=== PATIENT | female | born 1990 | race African-American/Black ===

== ENCOUNTER 2021-07-13 09:05 | Inpatient (IN) | payer SELFPAY ==
[2021-07-13 09:11] VITALS: BP 127/68; PULSE 100; RESP 15; TEMP 36.7; O2SAT 98; BMI 25.7
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
[2021-07-13 10:33] LABS: Amphetamines Screen Urine Negative (Negative); Barbiturates Screen Urine Negative (Negative); Benzodiazepines Screen Urine Negative (Negative); Cocaine Screen Urine Negative (Negative); Opiate Screen Urine Negative (Negative); PCP Screen Urine Negative (Negative); THC Screen Urine Negative (Negative)
[2021-07-13 11:30] LABS: Basophils # 0.1 10^3/uL (0.0-0.1); Eosinophils # 0.2 10^3/uL (0.0-0.8); Eosinophils % 3.1 %; Hematocrit 35.2 % (37.0-47.0); Hemoglobin 11.8 g/dL (11.5-15.3); Lymphocytes # 1.5 10^3/uL (0.8-4.8); Lymphocytes % 26.5 %; Mean Corpuscular HGB Conc 33.5 g/dL (30.0-36.0); Mean Corpuscular Hemoglobin 26.1 pg (28.0-34.0); Mean Corpuscular Volume 77.9 fl (81-99); Mean Platelet Volume 11.2 fL (7.4-10.4); Monocytes # 0.6 10^3/uL (0.2-0.9); Monocytes % 10.5 %; Neutrophils # 3.36 10^3/uL (1.8-7.7); Neutrophils % 58.6 %; Nucleated Red Blood Cells % 0 %; Platelet Count 294 10^3/cmm (130-400); Red Blood Count 4.52 10^6/uL (4.1-5.3); Red Cell Distribution Width 16.8 % (12.1-15.1); White Blood Count 5.7 10^3/uL (4.0-10.0)
[2021-07-13 11:54] LABS: HCG, Serum Qual Negative (Negative)
[2021-07-13 12:00] LABS: Albumin Level 3.9 g/dL (3.5-5.2); Chloride 102 mmol/L (98-107); Potassium 3.9 mmol/L (3.5-5.1); Sodium 135 mmol/L (136-145)
[2021-07-13 12:02] LABS: Acetaminophen < 5.0 ug/mL (10-30)
[2021-07-13 12:03] LABS: Alanine Aminotransferase 23 U/L (0-33); Alkaline Phosphatase 115 IU/L (35-105); Anion Gap 12.9 (5-19); Aspartate Amino Transferase 16 U/L (0-32); Blood Urea Nitrogen 12 mg/dL (6-20); Calcium 8.4 mg/dL (8.5-10.5); Carbon Dioxide 24 mmol/L (22-29); Globulin 3.3 g/dL (1.3-4.6); Glomerular Filtration Rate 141.1 mL/min (90-130); Glucose 94 mg/dL (65-115); Osmolality Calculated 280 mOsm/kg (285-295); Total Bilirubin 0.3 mg/dL (0.15-1.2); Total Protein 7.1 g/dL (6.6-8.7)
--- NOTE | 2021-07-13 12:18 | PC.NURSE ---
Report to GABRIEL Chowdary.
[2021-07-13 12:20] LABS: Salicylate < 0.3 mg/dL (3-10)
[2021-07-13 12:21] LABS: Alcohol Level < 10 mg/dL (0-10)
[2021-07-13 14:00] VITALS: BP 137/82; PULSE 95; RESP 18; TEMP 36.7; O2SAT 97
[2021-07-13] MEDS: haloperidol 5 mg Tablet PO (16:06)
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
[2021-07-13] MEDS: quetiapine 25 mg Tablet 50 MG PO (20:54)
[2021-07-13] MEDS: zolpidem 5 mg Tablet PO (20:54)
[2021-07-13 21:34] VITALS: RESP 15
[2021-07-14 06:00] VITALS: BP 92/60; PULSE 101; RESP 17; TEMP 36.6; O2SAT 96
[2021-07-14] MEDS: fluoxetine 20 mg Capsule PO (08:39)
[2021-07-14] MEDS: OLANZapine 5 mg ODT PO (08:39)
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
--- NOTE | 2021-07-14 12:21 | NPU.GN ---
[facility] Unit Group Topic:Marivel General Mood of Group: Miguel A did attend group and participated with others. Miguel A did talk with others and this physician underwriter. Miguel A did express to this physician underwriter that she wants to quit using drugs and be clean and start a family that the doctor told her that she could never have. This physician underwriter provided active listening and feedback that it is great to have those goals and encouraged the patient to achieve them.
[2021-07-14 13:24] VITALS: BP 109/69; PULSE 98; RESP 16; TEMP 36.6; O2SAT 98
[2021-07-14] MEDS: ARIPiprazole 10 mg Tablet 5 MG PO (14:04)
[2021-07-14] MEDS: nicotine 2 mg Gum BUCCAL ×2 (14:57→16:52)
[2021-07-14] MEDS: acetaminophen 325 mg Tablet 650 MG PO (17:01)
[2021-07-14] MEDS: hyDROXYzine 25 mg Capsule 50 MG PO (17:04)
[2021-07-14] MEDS: zolpidem 5 mg Tablet PO (20:04)
[2021-07-14] MEDS: quetiapine 25 mg Tablet 50 MG PO (20:04)
[2021-07-14 20:05] VITALS: BP 111/66; PULSE 120; RESP 16; O2SAT 98
[2021-07-15 06:00] VITALS: BP 103/69; PULSE 90; RESP 16; O2SAT 98
[2021-07-15] MEDS: nicotine 2 mg Gum BUCCAL ×2 (07:54→17:34)
[2021-07-15] MEDS: ARIPiprazole 10 mg Tablet 5 MG PO (09:29)
[2021-07-15] MEDS: fluoxetine 20 mg Capsule PO (09:29)
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
[2021-07-15 14:00] VITALS: BP 116/78; PULSE 108; RESP 17; TEMP 36.6; O2SAT 99
[2021-07-15 20:20] VITALS: BP 119/0; PULSE 94; RESP 15; TEMP 37.2; O2SAT 100
[2021-07-15] MEDS: zolpidem 5 mg Tablet PO (20:30)
[2021-07-15] MEDS: quetiapine 25 mg Tablet 50 MG PO (20:30)
[2021-07-16 06:00] VITALS: BP 121/76; PULSE 62; RESP 17; TEMP 36.6; O2SAT 98; BMI 25.7
[2021-07-16] MEDS: fluoxetine 20 mg Capsule PO (11:04)
[2021-07-16] MEDS: ARIPiprazole 10 mg Tablet 5 MG PO (11:04)
[2021-07-16] MEDS: nicotine 2 mg Gum BUCCAL ×2 (11:22→17:13)
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
[2021-07-16 14:00] VITALS: BP 110/74; PULSE 103; RESP 17; TEMP 36.3; O2SAT 95
[2021-07-16] MEDS: hyDROXYzine 25 mg Capsule 50 MG PO (17:57)
[2021-07-16 20:10] VITALS: BP 102/70; PULSE 88; RESP 17; TEMP 37.1; O2SAT 99
[2021-07-16] MEDS: zolpidem 5 mg Tablet PO (20:28)
[2021-07-16] MEDS: quetiapine 25 mg Tablet 50 MG PO (20:28)
[2021-07-17 06:00] VITALS: BP 96/60; PULSE 62; RESP 16; TEMP 36.7; O2SAT 98
[2021-07-17] MEDS: ARIPiprazole 10 mg Tablet 5 MG PO (08:42)
[2021-07-17] MEDS: fluoxetine 20 mg Capsule PO (08:43)
[2021-07-17] MEDS: hyDROXYzine 25 mg Capsule 50 MG PO (09:38)
--- NOTE | 2021-07-17 09:40 | PC.NURSE ---
patient reports increased anxiety due to auditory hallucinations, no command, non si or hi. medicated with prn vistaril.
--- NOTE | 2021-07-17 11:04 | NPU.GN ---
[facility] Group Topic:Triggers and Coping Skills General Mood of Group: Miguel A did attend and participate in group today. She socialized with this telegraphic typewriter operator chief and others in group. Miguel A shared her triggers and what coping mechanisms she uses when needed, and what triggers she has identified and how to avoid her triggers. Santiago was in a good mood and seems mentally and emotionally stable.
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
[2021-07-17 13:37] VITALS: BP 96/60; PULSE 62; RESP 16; TEMP 36.7; O2SAT 98
== END 2021-07-17 15:11 | disposition home or self-care (01) | DRG 885 ==
LOC: ER 11:00 → NP 11:47
PROVIDERS: Physician Assistant; Admitting Provider Psychiatry & Neurology Child & Adolescent Psychiatry; Emergency Provider Family Medicine; Visit Provider Psychiatry & Neurology Child & Adolescent Psychiatry
DX: F20.9 Schizophrenia, unspecified (principal); F43.10 Post-traumatic stress disorder, unspecified; R45.850 Homicidal ideations; F15.90 Other stimulant use, unspecified, uncomplicated; Z81.8 Family history of other mental and behavioral disorders
CPT/HCPCS: 36415; 80053; 80306; 80307; 84703; 85025; 97150; 97165; 99285

== ENCOUNTER 2023-06-05 08:16 | Emergency (ER) | payer BC, MEDICAID, SELFPAY ==
[2023-06-05 08:23] VITALS: BP 118/82; PULSE 103; RESP 18; TEMP 36.9; O2SAT 98
--- NOTE | 2023-06-05 08:42 | ED.C_ITS ---
HPI - Psych General: Chief Complaint: Psychiatric Symptoms Stated Complaint: SI Time Seen by Provider: 06/05/23 08:17 Source: patient and EMS Mode of arrival: EMS Limitations: no limitations History of Present Illness: 32 yo female that has a hx of schizophrenia along with meth abuse. She states that she has been at [facility] for a week for her meth rehab. She states she has had some auditory hallucinations. She denies any suicidal or homicidal ideations. pt sent here from [facility] for eval for her hallucinations Associated symptoms: Reports auditory hallucinations; Deny depression Review of Systems Const: Denies: fever(s), chills, body aches or change in appetite Eyes: Denies: blurry vision or eye discomfort ENMT: Denies: throat pain or dental pain Card: Denies: chest pain Resp: Denies: dyspnea GI: Denies: abdominal pain, nausea, vomiting or diarrhea : Denies: dysuria Musc: Denies: neck pain or back pain Skin/Breast: Denies: rash Neuro: Denies: headache(s) Psych: Reports: auditory hallucinations; Denies: depression Physical Exam Const: COMMON NORMALS: no acute distress, patient oriented x3 and healthy appearing HENMT: COMMON NORMALS: normocephalic and atraumatic HEAD & SCALP: n ormocephalic and atraumatic Eye: COMMON NORMALS: Equal, round and reactive pupils present and EOMs intact bilaterally PUPIL: Yes Equal, round and reactive pupils present Neck/C-Spine: COMMON NORMALS: full ROM and supple Chest: COMMONS NORMALS: normal inspection of the chest Resp: COMMON NORMALS: normal respiratory effort Cardio: COMMON NORMALS: regular rate, regular rhythm and No murmurs present (Cardio) RATE: regular rate RHYTHM: regular rhythm GI: COMMON NORMALS: Normal to inspection, nondistended, normoactive bowel sounds present, Soft to palpation, non-tender and no masses PALPATION: Yes Soft to palpation Extremity: COMMON NORMALS: normal to inspection and full ROM Neuro: COMMON NORMALS: patient oriented x3, moves all extremities and no focal motor deficits Psych: COMMON NORMALS: mental status grossly normal, Normal thought process present and cooperative THOUGHT PROCESS: Normal thought process present THOUGHT CONTENT: Yes Hallucination(s) present Skin: COMMON NORMALS: no rashes or lesions noted and no wounds GENERAL SKIN EXAM: no rashes or lesions noted Course Vital Signs: Vital signs: Vital Signs Temperature 98.5 F 06/05/23 08:23 Pulse Rate 103 H 06/05/23 08:23 Respiratory Rate 18 06/05/23 08:23 Blood Pressure 118/82 06/05/23 08:23 Pulse Oximetry 98 06/05/23 08:23 MDM - Psych Medical Decision Making pt presents here with hallucinations. Pt was seen here by Dr. baum and plan is to give invega and prescribe invega for home. will discharge back to [facility] at this time. pt is to return if worsening. Lab Data 06/05/23 08:37 06/05/23 08:37 Laboratory Results WBC 7.35 10^3/uL (3.29-11.43) 06/05/23 08:37 RBC 4.46 10^6/uL (3.85-5.65) 06/05/23 08:37 Hgb 11.60 g/dL (11.27-16.99) 06/05/23 08:37 Hct 35.3 % (36-47) L 06/05/23 08:37 MCV 79.1 fl (85-98) L 06/05/23 08:37 MCH 26.0 pg (27-33) L 06/05/23 08:37 MCHC 32.9 g/dL (30-55) 06/05/23 08:37 RDW 16.5 % (12.1-15.1) H 06/05/23 08:37 Plt Count 260 10^3/cmm (157-399) 06/05/23 08:37 MPV 11.3 fL (7.4-10.4) H 06/05/23 08:37 Neut % (Auto) 66.4 % 06/05/23 08:37 Lymph % (Auto) 18.8 % 06/05/23 08:37 Bulloch % (Auto) 10.6 % 06/05/23 08:37 Eos % (Auto) 1.9 % 06/05/23 08:37 Baso % (Auto) 1.1 % 06/05/23 08:37 Neut # (Auto) 4.88 10^3/uL (1.8-7.7) 06/05/23 08:37 Lymph # (Auto) 1.4 10^3/uL (0.8-4.8) 06/05/23 08:37 Bulloch # (Auto) 0.8 10^3/uL (0.2-0.9) 06/05/23 08:37 Eos # (Auto) 0.1 10^3/uL (0.0-0.8) 06/05/23 08:37 Baso # (Auto) 0.1 10^3/uL (0.0-0.1) 06/05/23 08:37 Nucleated RBC % (auto) 0 % 06/05/23 08:37 Nucleated RBCs # 0.0 /100WBC 06/05/23 08:37 Sodium 139 mmol/L (136-145) 06/05/23 08:37 Potassium 4.2 mmol/L (3.5-5.1) 06/05/23 08:37 Chloride 105 mmol/L (98-107) 06/05/23 08:37 Carbon Dioxide 24 mmol/L (22-29) 06/05/23 08:37 Anion Gap 14.2 (5-19) 06/05/23 08:37 BUN 13 mg/dL (6-20) 06/05/23 08:37 Creatinine 0.8 mg/dL (0.5-0.9) 06/05/23 08:37 GFR Calculation 100.0 mL/min (90-130) 06/05/23 08:37 Glucose 131 mg/dL (65-115) H 06/05/23 08:37 Calculated Osmolality 290 mOsm/kg (285-295) 06/05/23 08:37 Calcium 8.8 mg/dL (8.5-10.5) 06/05/23 08:37 Total Bilirubin 0.3 mg/dL (0.15-1.2) 06/05/23 08:37 AST 23 U/L (0-32) 06/05/23 08:37 ALT 41 U/L (0-33) H 06/05/23 08:37 Alkaline Phosphatase 113 U/L (35-105) H 06/05/23 08:37 Total Protein 7.1 g/dL (6.6-8.7) 06/05/23 08:37 Albumin 4.0 g/dL (3.5-5.2) 06/05/23 08:37 Globulin 3.1 g/dL (1.3-4.6) 06/05/23 08:37 HCG, Qual Negative (Negative) 06/05/23 08:40 Salicylates < 0.3 mg/dL (3-10) L 06/05/23 08:37 Urine Opiates Screen Negative ng/mL (Negative) 06/05/23 08:40 Acetaminophen < 5.0 ug/mL (10-30) L 06/05/23 08:37 Ur Barbiturates Screen Negative ng/mL (Negative) 06/05/23 08:40 Ur Phencyclidine Scrn Negative ng/mL (Negative) 06/05/23 08:40 Ur Amphetamines Screen Negative ng/mL (Negative) 06/05/23 08:40 U Benzodiazepines Scrn Negative ng/mL (Negative) 06/05/23 08:40 Urine Cocaine Screen Negative ng/mL (Negative) 06/05/23 08:40 U Marijuana (THC) Screen Negative ng/mL (Negative) 06/05/23 08:40 Ethyl Alcohol < 10 mg/dL (0-10) 06/05/23 08:37 No radiology studies performed this visit Discharge Plan Discharge Patient Disposition: Home Clinical Impression: Auditory hallucination Condition: Stable Prescriptions: New Invega 6 mg tablet extended release 24 hr 6 mg PO DAILY Qty: 30 0RF No Action hydroxyzine pamoate 25 mg Capsule 50 mg PO Q6H PRN (Reason: Anxiety) 30 Days Qty: 120 1RF clonidine HCl 0.1 mg Tablet 0.1 mg PO DAILY PRN (Reason: Blood Pressure) mirtazapine 30 mg Tablet 30 mg PO QPM ibuprofen 600 mg Tablet 600 mg PO TID PRN (Reason: Pain) olanzapine 20 mg Tablet 20 mg PO QPM prazosin 2 mg Capsule 2 mg PO QPM olanzapine 5 mg tablet,disintegrating 5 mg PO QID PRN (Reason: Anxiety) bupropion HCl 150 mg Tablet Extended Release 24 Hr 150 mg PO QAM Discharge Orders: Discharge ED (Routine); Ordered 06/05/23 Ordered By: Maday Montalvo Discharge Diet: Advance as tolerated Discharge Activity: Resume usual activity Patient Instructions: Hallucinations (ED) Coding Level of Care Code ED Cigar Tobacco Processing Supervisor for Patrick Alfonso
[2023-06-05 08:43] LABS: Basophils # 0.1 10^3/uL (0.0-0.1); Basophils % 1.1 %; Eosinophils # 0.1 10^3/uL (0.0-0.8); Eosinophils % 1.9 %; Hematocrit 35.3 % (36-47); Lymphocytes # 1.4 10^3/uL (0.8-4.8); Lymphocytes % 18.8 %; Mean Corpuscular HGB Conc 32.9 g/dL (30-55); Mean Corpuscular Volume 79.1 fl (85-98); Mean Platelet Volume 11.3 fL (7.4-10.4); Monocytes # 0.8 10^3/uL (0.2-0.9); Monocytes % 10.6 %; Neutrophils # 4.88 10^3/uL (1.8-7.7); Neutrophils % 66.4 %; Nucleated Red Blood Cells % 0 %; Platelet Count 260 10^3/cmm (157-399); Red Blood Count 4.46 10^6/uL (3.85-5.65); Red Cell Distribution Width 16.5 % (12.1-15.1); White Blood Count 7.35 10^3/uL (3.29-11.43)
[2023-06-05 09:02] LABS: HCG Qualitative Urine. Negative (Negative)
[2023-06-05 09:04] LABS: Alanine Aminotransferase 41 U/L (0-33); Alkaline Phosphatase 113 U/L (35-105); Anion Gap 14.2 (5-19); Aspartate Amino Transferase 23 U/L (0-32); Blood Urea Nitrogen 13 mg/dL (6-20); Calcium 8.8 mg/dL (8.5-10.5); Carbon Dioxide 24 mmol/L (22-29); Chloride 105 mmol/L (98-107); Globulin 3.1 g/dL (1.3-4.6); Glucose 131 mg/dL (65-115); Osmolality Calculated 290 mOsm/kg (285-295); Potassium 4.2 mmol/L (3.5-5.1); Sodium 139 mmol/L (136-145); Total Bilirubin 0.3 mg/dL (0.15-1.2); Total Protein 7.1 g/dL (6.6-8.7)
[2023-06-05 09:05] LABS: Acetaminophen < 5.0 ug/mL (10-30); Alcohol Level < 10 mg/dL (0-10); Salicylate < 0.3 mg/dL (3-10)
[2023-06-05 09:10] LABS: Amphetamines Screen Urine Negative (Negative); Barbiturates Screen Urine Negative (Negative); Benzodiazepines Screen Urine Negative (Negative); Cocaine Screen Urine Negative (Negative); Opiate Screen Urine Negative (Negative); PCP Screen Urine Negative (Negative); THC Screen Urine Negative (Negative)
[2023-06-05] MEDS: paliperidone ER 6 mg Tablet PO (11:43)
== END 2023-06-05 12:37 | disposition home or self-care (01) ==
PROVIDERS: Emergency Provider Emergency Medicine
DX: R44.0 Auditory hallucinations (principal)
CPT/HCPCS: 36415; 80053; 80306; 80307; 81025; 85025; 99283

== ENCOUNTER 2023-06-08 15:47 | Emergency (ER) | payer BC, MEDICAID, SELFPAY ==
[2023-06-08 15:51] VITALS: BP 129/79; PULSE 117; RESP 17; TEMP 37.1; O2SAT 98; BMI 31.7
--- NOTE | 2023-06-08 16:02 | XRR_ITS ---
PROCEDURE INFORMATION: Exam: XR Right Ankle Exam date and time: 06/08/2023 4:21 PM Age: 32 years old Clinical indication: Injury or trauma; Other: [place] pop in foot and ankle; Swelling (edema); Right; Additional info: Pain TECHNIQUE: Imaging protocol: Radiologic exam of the right ankle. Views: 3 or more views. COMPARISON: No relevant prior studies available. FINDINGS: Bones/joints: Normal. Soft tissues: Normal. XR/XR ankle RT min 3V* [id number] IMPRESSION: No acute findings.
--- NOTE | 2023-06-08 16:02 | XRR_ITS ---
PROCEDURE INFORMATION: Exam: XR Right Foot Exam date and time: 06/08/2023 4:23 PM Age: 32 years old Clinical indication: Injury or trauma; Other: Hurt RT foot; Swelling (edema); Right; Additional info: Pain TECHNIQUE: Imaging protocol: Radiologic exam of the right foot. Views: 3 or more views. COMPARISON: CR (LOW EXM, ) 06/08/2023 4:21 PM FINDINGS: Bones/joints: Normal. Soft tissues: Normal. XR/XR foot RT min 3V* [id number] IMPRESSION: No acute findings.
[2023-06-08] MEDS: HYDROcodone-acetaminophen 5-325 mg Tablet 1 TAB PO (17:50)
--- NOTE | 2023-06-09 03:11 | ED_ITS ---
HPI - Extremity Problem General: Chief complaint: Extremity Injury, Lower Stated complaint: right ankle pain Time Seen by Provider: 06/08/23 16:04 Source: patient Mode of arrival: wheelchair Limitations: no limitations History of Present Illness: Patient presents emergency department today for evaluation treatment of right lateral ankle and right lateral foot pain. Patient states she was playing [employer] when she accidentally rolled her foot and ankle in an inverted fashion. She states since that time she has been unable to bear weight on it and complains of sudden swelling. Patient denies any previous injury to this ankle or foot in the past. Review of Systems General: Reports: 10 or more systems reviewed and unremarkable except in HPI and below Physical Exam Const: COMMON NORMALS: no acute distress, patient oriented x3 and alert HENMT: COMMON NORMALS: normocephalic, atraumatic and hearing grossly normal bilaterally HEAD & SCALP: normocephalic and atraumatic Eye: COMMON NORMALS: Equal, round and reactive pupils present, EOMs intact bilaterally and conjunctivae normal CONJUNCTIVA: Yes conjunctivae normal PUPIL: Yes Equal, round and reactive pupils present Neck/C-Spine: COMMON NORMALS: full ROM and no JVD Lymph: LYMPHATIC: no lymphadenopathy noted Resp: COMMON NORMALS: normal respiratory effort, No retractions and No use of accessory muscles Cardio: COMMON NORMALS: no JVD and regular rate RATE: regular rate Extremity: NARRATIVE EXTREMITY EXAM: Patient has soft tissue edema just anterior to the right lateral malleolus. Patient is tender in the right lateral malleolus but more tender just anterior to the tip of the fibula. No Achilles attachment tenderness. Some proximal fifth metatarsal tenderness. Patient does demonstrate some flexion extension capabilities at the right ankle. Full flexion extension capabilities of the right toes. Neuro: COMMON NORMALS: patient oriented x3 SENSORIUM/ORIENTATION: Yes alert Psych: COMMON NORMALS: mental status grossly normal, Normal thought process present, cooperative and normal affect THOUGHT PROCESS: Normal thought process present Skin: COMMON NORMALS: no rashes or lesions noted and turgor normal GENERAL SKIN EXAM: no rashes or lesions noted and turgor normal Course Vital Signs: Vital signs: Vital Signs Temperature 98.8 F 06/08/23 15:51 Pulse Rate 117 H 06/08/23 15:51 Respiratory Rate 17 06/08/23 15:51 Blood Pressure 129/79 06/08/23 15:51 Pulse Oximetry 98 06/08/23 15:51 Oxygen Delivery Me thod Room Air 06/08/23 15:51 MDM - Extremity (Nontraumatic) Medical Decision Making Patient's x-ray was read negative for any signs of acute abnormality however, given the patient's physical exam and location of soft tissue swelling, I do think there appears to be an avulsion either at the cuboid or the calcaneus noted on 2 views of the x-rays. For that reason I did recommend immobilizing the patient and providing her crutches to be nonweightbearing. Patient was offered medication for pain. This was a narcotic pain medication. Patient attends [facility] and was notified this could be a problem by the facility who called to check on the patient while here in the ER however, as it is a HIPAA violation to provide medical information regarding this patient, we did not discuss the patient's treatment plan with the facility but did touch base with the patient to make sure we did not provide her any medication that would invalidate her from the program. Patient states she is not there for substance use and states she did not sign any type of paperwork indicating she would not take prescribed pain medications. Patient was provided nonnarcotic pain medication at discharge as well as a referral placed to orthopedics/podiatry for follow-up. Differential Diagnosis Unlikely gout, cellulitis, lower extremity edema or deep vein thrombosis of lower extremity Lab Data Radiology Impressions Ankle X-Ray 06/08/23 16:02 IMPRESSION: No acute findings. Foot X-Ray 06/08/23 16:02 IMPRESSION: No acute findings. All radiology interpretation(s) finalized by discharge Discharge Plan Discharge Patient Disposition: Home Clinical Impression: Inversion sprain of right ankle, Other sprain of right foot, initial encounter Condition: Stable Prescriptions: New tizanidine 4 mg capsule 4 mg PO TID PRN (Reason: muscle spasticity) Qty: 15 0RF naproxen 500 mg tablet 500 mg PO BID PRN (Reason: pain) Qty: 20 0RF No Action hydroxyzine pamoate 25 mg Capsule 50 mg PO Q6H PRN (Reason: Anxiety) 30 Days Qty: 120 1RF clonidine HCl 0.1 mg Tablet 0.1 mg PO DAILY PRN (Reason: Blood Pressure) mirtazapine 30 mg Tablet 30 mg PO QPM ibuprofen 600 mg Tablet 600 mg PO TID PRN (Reason: Pain) olanzapine 20 mg Tablet 20 mg PO QPM prazosin 2 mg Capsule 2 mg PO QPM olanzapine 5 mg tablet,disintegrating 5 mg PO QID PRN (Reason: Anxiety) bupropion HCl 150 mg Tablet Extended Release 24 Hr 150 mg PO QAM Invega 6 mg tablet extended release 24 hr 6 mg PO DAILY Qty: 30 0RF Discharge Orders: Discharge ED (Routine); Ordered 06/08/23 Ordered By: Veronica Rousseau Patient Instructions: Ankle Sprain (ED) Activity Restrictions/Additional Instructions: Your x-ray today was officially read negative by the radiologist however, in my opinion I do believe there is a significant suspicion for an avulsion fracture either off of your cuboid bone or your calcaneus. This does correlate with the area of swelling you have on the side of your foot and ankle as well as the location of your tenderness. Because of my concerns I would like to treat as a potential fracture by placing you in a splint which needs to remain on, in place, clean, and dry. You are to remain nonweightbearing and use crutches anytime you need to get up and around until you are seen and evaluated by the software computer specialist. I have requested a follow-up appointment with their office for recheck of your injuries. They may wish to take repeat films to further evaluate and at that time, may be released back to weightbearing or, may require continued casting and nonweightbearing until healed. Stand Alone Forms: Work/School Release Coding Level of Care Code ED Digital Forensics Investigator for Patrick Alfonso
--- NOTE | 2023-06-10 08:24 | PC.SOCIAL ---
Ortho Referral Referral to Ortho at this time. Clinic to contact patient with appt date/time.
== END 2023-06-08 18:30 | disposition home or self-care (01) ==
PROVIDERS: Emergency Provider Physician Assistant
DX: S93.401A Sprain of unspecified ligament of right ankle, initial encounter (principal); S93.601A Unspecified sprain of right foot, initial encounter; X50.1XXA Overexertion from prolonged static or awkward postures, initial encounter; Y93.68 Activity, volleyball (beach) (court)
CPT/HCPCS: 29515; 73610; 73630; 99283

== ENCOUNTER 2023-06-19 07:33 | Inpatient (IN) | payer BC, MEDICAID, SELFPAY ==
[2023-06-19 07:34] VITALS: TEMP 37
[2023-06-19 07:54] VITALS: BP 128/93; PULSE 97; RESP 17; TEMP 36.7; O2SAT 98
--- NOTE | 2023-06-19 08:00 | PC.PHAR ---
PT HERE FROM [facility]- PT HAS REFUSED MOST OF HER MEDS FOR 2 DAYS
[2023-06-19 08:11] LABS: Basophils # 0.1 10^3/uL (0.0-0.1); Basophils % 1.2 %; Eosinophils # 0.3 10^3/uL (0.0-0.8); Eosinophils % 3.8 %; Hematocrit 37.2 % (36-47); Lymphocytes # 1.7 10^3/uL (0.8-4.8); Lymphocytes % 24.9 %; Mean Corpuscular HGB Conc 33.1 g/dL (30-55); Mean Corpuscular Hemoglobin 26.1 pg (27-33); Mean Corpuscular Volume 78.8 fl (85-98); Mean Platelet Volume 10.7 fL (7.4-10.4); Monocytes # 0.9 10^3/uL (0.2-0.9); Neutrophils # 3.72 10^3/uL (1.8-7.7); Nucleated Red Blood Cells % 0 %; Platelet Count 277 10^3/cmm (157-399); Red Blood Count 4.72 10^6/uL (3.85-5.65); Red Cell Distribution Width 16.9 % (12.1-15.1); White Blood Count 6.63 10^3/uL (3.29-11.43)
[2023-06-19 08:12] LABS: Urine Appearance SL Hazy (CLEAR); Urine Color Yellow (Yellow); pH Urine 5 (5-7)
[2023-06-19 08:13] LABS: Add Urine Microscopic? YES; Bilirubin Urine Neg (Negative); Blood Urine Neg (Negative); Glucose Urine UA Norm (Normal); HCG Qualitative Urine. Negative (Negative); Ketones Urine Negative (Negative); Leukocyte Esterase Urine Negative (Negative); Nitrate Urine Negative (Negative); Protein Urine Neg (Negative); Urobilinogen Urine Norm (Negative)
[2023-06-19 08:16] LABS: Amphetamines Screen Urine Negative (Negative); Barbiturates Screen Urine Negative (Negative); Benzodiazepines Screen Urine Negative (Negative); Cocaine Screen Urine Negative (Negative); Opiate Screen Urine Negative (Negative); PCP Screen Urine Negative (Negative); THC Screen Urine Negative (Negative)
[2023-06-19 08:23] LABS: RBC Urine 0-4 /hpf (0-2); WBC Urine 0-4 /hpf (0-5)
[2023-06-19 08:24] LABS: Add Urine Culture? No; Bacteria Urine TRACE /hpf; Trichomonas Urine 2+ /hpf
[2023-06-19 08:31] LABS: Alanine Aminotransferase 28 U/L (0-33); Albumin Level 4.2 g/dL (3.5-5.2); Alkaline Phosphatase 137 U/L (35-105); Aspartate Amino Transferase 17 U/L (0-32); Blood Urea Nitrogen 16 mg/dL (6-20); Calcium 9.1 mg/dL (8.5-10.5); Carbon Dioxide 25 mmol/L (22-29); Chloride 100 mmol/L (98-107); Globulin 3.6 g/dL (1.3-4.6); Glomerular Filtration Rate 116.6 mL/min (90-130); Glucose 85 mg/dL (65-115); Osmolality Calculated 278 mOsm/kg (285-295); Sodium 134 mmol/L (136-145); Total Bilirubin 0.3 mg/dL (0.15-1.2); Total Protein 7.8 g/dL (6.6-8.7)
--- NOTE | 2023-06-19 08:48 | ED.C_ITS ---
HPI - Psych General: Chief Complaint: Psychiatric Symptoms Stated Complaint: SI Time Seen by Provider: 06/19/23 07:34 History of Present Illness: Patient presents to the ER today stating she woke up at 3:00 and and was hearing voices and the voices tell her to kill herself. Patient states she hears voices every day so this is not new however they normally do not tell her to harm h erself. She says she has been our resident in our inpatient psychiatric facility before and would like to go back again. Review of Systems General: Reports: 10 or more systems reviewed and unremarkable except in HPI and below Physical Exam Const: COMMON NORMALS: no acute distress, average body habitus, patient orie nted x3, no limitations, healthy appearing, alert and well nourished HENMT: COMMON NORMALS: normocephalic, atraumatic, hearing grossly normal bila terally, external ears normal, Normal external nose present and moist oral mucous membranes HEAD & SCALP: normocephalic and atraumatic NOSE: Normal external nose present EXTERNAL EAR: Yes external ears normal Eye: COMMON NORMALS: Equal, round and reactive pupils present, EOMs intact bilaterally, conjunctivae normal and no scleral icterus CONJUNCTIVA: Yes conjunctivae normal PUPIL: Yes Equal, round and reactive pupils present Neck/C-Spine: COMMON NORMALS: full ROM, no lymphadenopathy, supple, no meningeal signs, no JVD and Thyroid normal THYROID: Thyroid normal Chest: COMMONS NORMALS: normal inspection of the chest and normal palpation of entire chest wall Resp: COMMON NORMALS: normal respiratory effort, No retractions, No use of accessory muscles and clear to auscultation bilaterally AUSCULTATION: clear to auscultation bilaterally Cardio: COMMON NORMALS: no JVD, regular rate, regular rhythm, S1 normal heart sound present, S2 normal heart sound present, No gallops present (Cardio), No clicks present (Cardio), No murmurs present (Cardio) and No rub (Cardio) RATE: regular rate RHYTHM: regular rhythm HEART SOUNDS: S1 normal heart sound present and S2 normal heart sound present GI: COMMON NORMALS: Normal to inspection, nondistended, normoactive bowel sounds present, Soft to palpation, non-tender, No hepatosplenomegaly present and no masses PALPATION: Yes Soft to palpation and Yes No hepatosplenomegaly present : COMMON NORMALS: Yes no CVA tenderness BLADDER/KIDNEY EXAM: Yes no CVA tenderness Back/Pelvis: COMMON NORMALS: no CVA tenderness Neuro: COMMON NORMALS: patient oriented x3 SENSORIUM/ORIENTATION: Yes alert MENINGEAL SIGNS: Yes no meningeal signs Course Vital Signs: Vital signs: Vital Signs Temperature 98.6 F 06/19/23 07:34 MDM - Psych Medical Decision Making Patient presents to the ER with complaints of auditory hallucinations telling her to kill herself and/or hurt herself. Patient does have a diagnosis of schizophrenia and is on multiple psychiatric medicines. Psychiatric work-up was obtained in the standard fashion Dr. Gaines was consulted who agreed for admission for further evaluation and treatment. Urinary test show patient does have trichomonas we will treat that in ER with 2 g of Flagyl. Differential Diagnosis Likely chronic schizophrenia and suicidal ideation; Unlikely acute psychosis, bipolar disorder, depression, drug-induced psychotic disorder or acute anxiety Medical Records I reviewed the patient's medical records. Lab Data I reviewed the patient's lab results. 06/19/23 07:56 06/19/23 07:56 Laboratory Results WBC 6.63 10^3/uL (3.29-11.43) 06/19/23 07:56 RBC 4.72 10^6/uL (3.85-5.65) 06/19/23 07:56 Hgb 12.30 g/dL (11.27-16.99) 06/19/23 07:56 Hct 37.2 % (36-47) 06/19/23 07:56 MCV 78.8 fl (85-98) L 06/19/23 07:56 MCH 26.1 pg (27-33) L 06/19/23 07:56 MCHC 33.1 g/dL (30-55) 06/19/23 07:56 RDW 16.9 % (12.1-15.1) H 06/19/23 07:56 Plt Count 277 10^3/cmm (157-399) 06/19/23 07:56 MPV 10.7 fL (7.4-10.4) H 06/19/23 07:56 Neut % (Auto) 56.0 % 06/19/23 07:56 Lymph % (Auto) 24.9 % 06/19/23 07:56 [place] % (Auto) 13.0 % 06/19/23 07:56 Eos % (Auto) 3.8 % 06/19/23 07:56 Baso % (Auto) 1.2 % 06/19/23 07:56 Neut # (Auto) 3.72 10^3/uL (1.8-7.7) 06/19/23 07:56 Lymph # (Auto) 1.7 10^3/uL (0.8-4.8) 06/19/23 07:56 [place] # (Auto) 0.9 10^3/uL (0.2-0.9) 06/19/23 07:56 Eos # (Auto) 0.3 10^3/uL (0.0-0.8) 06/19/23 07:56 Baso # (Auto) 0.1 10^3/uL (0.0-0.1) 06/19/23 07:56 Nucleated RBC % (auto) 0 % 06/19/23 07:56 Nucleated RBCs # 0.0 /100WBC 06/19/23 07:56 Sodium 134 mmol/L (136-145) L 06/19/23 07:56 Potassium 4.3 mmol/L (3.5-5.1) 06/19/23 07:56 Chloride 100 mmol/L (98-107) 06/19/23 07:56 Carbon Dioxide 25 mmol/L (22-29) 06/19/23 07:56 Anion Gap 13.3 (5-19) 06/19/23 07:56 BUN 16 mg/dL (6-20) 06/19/23 07:56 Creatinine 0.7 mg/dL (0.5-0.9) 06/19/23 07:56 GFR Calculation 116.6 mL/min (90-130) 06/19/23 07:56 Glucose 85 mg/dL (65-115) 06/19/23 07:56 Calculated Osmolality 278 mOsm/kg (285-295) L 06/19/23 07:56 Calcium 9.1 mg/dL (8.5-10.5) 06/19/23 07:56 Total Bilirubin 0.3 mg/dL (0.15-1.2) 06/19/23 07:56 AST 17 U/L (0-32) 06/19/23 07:56 ALT 28 U/L (0-33) 06/19/23 07:56 Alkaline Phosphatase 137 U/L (35-105) H 06/19/23 07:56 Total Protein 7.8 g/dL (6.6-8.7) 06/19/23 07:56 Albumin 4.2 g/dL (3.5-5.2) 06/19/23 07:56 Globulin 3.6 g/dL (1.3-4.6) 06/19/23 07:56 HCG, Qual Negative (Negative) 06/19/23 07:58 Urine Color Yellow (Yellow) 06/19/23 07:58 Urine Appearance Sl hazy (CLEAR) A 06/19/23 07:58 Urine pH 5 (5-7) 06/19/23 07:58 Ur Specific [place] 1.020 (1.005-1.030) 06/19/23 07:58 Urine Protein Neg (Negative) 06/19/23 07:58 Urine Glucose (UA) Norm (Normal) 06/19/23 07:58 Urine Ketones Negative (Negative) 06/19/23 07:58 Urine Blood Neg (Negative) 06/19/23 07:58 Urine Nitrate Negative (Negative) 06/19/23 07:58 Urine Bilirubin Neg (Negative) 06/19/23 07:58 Urine Urobilinogen Norm mg/dL (Negative) 06/19/23 07:58 Ur Leukocyte Esterase Negative (Negative) 06/19/23 07:58 Urine RBC 0-4 /hpf (0-2) H 06/19/23 07:58 Urine WBC 0-4 /hpf (0-5) H 06/19/23 07:58 Ur Squamous Epith Cells 5-10 /hpf (0-5) H 06/19/23 07:58 Amorphous Sediment Not Reportable 06/19/23 07:58 Urine Bacteria Trace /hpf (NONE) 06/19/23 07:58 Urine Mucus None /hpf 06/19/23 07:58 Urine Trichomonas 2+ /hpf H 06/19/23 07:58 Salicylates < 0.3 mg/dL (3-10) L 06/19/23 07:56 Urine Opiates Screen Negative ng/mL (Negative) 06/19/23 07:58 Acetaminophen < 5.0 ug/mL (10-30) L 06/19/23 07:56 Ur Barbiturates Screen Negative ng/mL (Negative) 06/19/23 07:58 Ur Phencyclidine Scrn Negative ng/mL (Negative) 06/19/23 07:58 Ur Amphetamines Screen Negative ng/mL (Negative) 06/19/23 07:58 U Benzodiazepines Scrn Negative ng/mL (Negative) 06/19/23 07:58 Urine Cocaine Screen Negative ng/mL (Negative) 06/19/23 07:58 U Marijuana (THC) Screen Negative ng/mL (Negative) 06/19/23 07:58 Ethyl Alcohol < 10 mg/dL (0-10) 06/19/23 07:56 No radiology studies performed this visit Discharge Plan Discharge Patient Disposition: Admitted As Inpatient Clinical Impression: Suicidal ideation, Auditory hallucination, Trichomonas vaginalis (TV) infection Condition: Stable Coding Level of Care Code ED 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
[2023-06-19 08:55] LABS: Acetaminophen < 5.0 ug/mL (10-30); Alcohol Level < 10 mg/dL (0-10); Salicylate < 0.3 mg/dL (3-10)
[2023-06-19 08:56] LABS: Anion Gap 13.3 (5-19); Potassium 4.3 mmol/L (3.5-5.1)
[2023-06-19] MEDS: metroNIDAZOLE 500 MG Tablet 2000 MG PO (09:07)
--- NOTE | 2023-06-19 09:27 | XR_ITS ---
WS: [id number] EXAMINATION: XR ankle RT min 3V* [id number] REASON FOR EXAM: pain COMPARISON: 06/08/2023 ORDER DATE: 06/19/2023 9:36 AM TECHNIQUE: 3 views of the right ankle were obtained. X-RAY FINDINGS: The ankle mortise is intact. There are some tiny calcifications in the subfibular soft tissues along with a tiny chronic appearing avulsion fragment from the dorsal navicular. No interval change from pr evious. IMPRESSION: No acute fractures or dislocations of the right ankle.
[2023-06-19] MEDS: ketorolac 60 mg/2 mL INJ IM (09:33)
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
[2023-06-19 14:00] VITALS: BP 84/46; PULSE 103; RESP 16; TEMP 36.6; O2SAT 96
[2023-06-19] MEDS: paliperidone ER 6 mg Tablet PO (15:43)
[2023-06-19] MEDS: ibuprofen 600 mg Tablet PO (16:04)
[2023-06-19] MEDS: prazosin 1 mg Capsule 4 MG PO (20:13)
[2023-06-19] MEDS: mirtazapine 30 mg Tablet PO (20:13)
[2023-06-19 20:48] VITALS: BP 137/89; PULSE 91; RESP 18; TEMP 37; O2SAT 95
[2023-06-20 06:00] VITALS: BP 110/59; PULSE 104; RESP 17; TEMP 37; O2SAT 99
[2023-06-20] MEDS: paliperidone ER 6 mg Tablet PO (08:54)
[2023-06-20] MEDS: hyDROXYzine 25 mg Capsule 50 MG PO (10:02)
[2023-06-20] MEDS: OLANZapine 5 mg ODT PO (11:23)
--- NOTE | 2023-06-20 12:10 | W.PM.NPUPNS ---
Subjective NPU Subjective: Patient presented today reporting that the Invega has been quite helpful. She reports a reduction in symptoms and will hold that she can return to [facility] sooner rather than later. We discussed taking it day by day and seeing how she is doing tomorrow. Mental Status Exam MSE Comments: This is a well-nourished well-developed -Citizen [place] female in hospital scrubs with appropriate grooming and fair eye contact. No abnormal movements except for mild psychomotor retardation. She was cooperative with exam and appeared in moderate distress. Speech was normal in regards to rate rhythm and prosody with no increase in latency noted. Mood described as maybe a little better. Her affect was mood incongruent and somewhat subdued. Her thought process was linear and organized. Thought content: Patient denied both suicidal and homicidal ideation. She endorsed auditory hallucinations of a command nature, but improving. She denied any visual hallucinations. Attention and concentration were intact and memory appeared reliable but none were formally tested. She is alert and oriented x3. Insight was poor and judgment appear impaired. Her impulse control is poor. Vitals/I&O/Wt Last Vital Signs Temp 98.6 F 06/20/23 06:00 Pulse 104 H 06/20/23 06:00 Resp 17 06/20/23 06:00 BP 110/59 06/20/23 06:00 Pulse Ox 99 06/20/23 06:00 O2 Del Method Room Air 06/20/23 06:00 Weight last 48 hrs Weight 92.896 kg Data NPU 06/19/23 07:56 06/19/23 07:56 A&P Assessment and plan (1) Depression, unspecified: (2) Auditory hallucination: (3) Methamphetamine dependence: (4) Homicidal ideation: (5) PTSD (post-traumatic stress disorder): (6) Schizophrenia: Plan 32-year-old -Citizen [place] female with a history of methamphetamine abuse along with a history of PTSD and psychosis along with depression who presents with command auditory hallucinations while residing in an inpatient substance abuse facility. 1. ?Encourage individual, group and milieu therapy. 2. Recommend sober living treatment at the highest level of care to which the patient is willing to commit. 3. Continue q-15 minute checks for safety.? 4. Restarted outpatient medications but held abilify and olanzapine and began Invega with plan for consideration of long acting IM Invega (patient has reported no previous trial of this medication for psychosis) Involuntary Hold Information 96 Hour Hold: 96 Hour Involuntary Admission: No Attestations NPU Medical Necessity Statement*: Inpatient hospitalization is medically necessary and deemed to be the ?clinically appropriate intervention ?at this time.? We will monitor/initiate medications and make changes as indicated.? ? The patient's likely length of stay 5-7 days. Coding Level of Care Code Acute Code for [facility] Fwd Diagnoses Depression, unspecified F32.A Auditory hallucination R44.0 Methamphetamine dependence F15.20 Homicidal ideation R45.850 PTSD (post-traumatic stress disorder) F43.10 Schizophrenia F20.9
[2023-06-20 14:00] VITALS: BP 110/72; PULSE 103; RESP 16; TEMP 36.8; O2SAT 100
[2023-06-20] MEDS: mirtazapine 30 mg Tablet PO (19:54)
[2023-06-20] MEDS: prazosin 1 mg Capsule 4 MG PO (19:54)
[2023-06-20] MEDS: trazodone 50 mg Tablet PO ×2 (19:54→23:37)
[2023-06-20 20:26] VITALS: BP 132/75; PULSE 105; RESP 17; TEMP 36.9; O2SAT 100
[2023-06-21 06:00] VITALS: BP 100/61; PULSE 107; RESP 16; TEMP 37.1; O2SAT 98
[2023-06-21] MEDS: paliperidone ER 6 mg Tablet PO (07:55)
[2023-06-21] MEDS: nicotine 2 mg Gum BUCCAL ×3 (11:08→16:17)
--- NOTE | 2023-06-21 12:28 | W.PM.NPUPNS ---
Subjective NPU Subjective: Patient presented today reporting that she is doing fine. She endorsed that the medication is helping and she is happy something works. She identified a plan to return to [facility] once she is better. We talked about a projected discharge date of Saturday with a plan to observe her over the weekend. She reports that she is fine with that plan and denied any current side effects. Mental Status Exam MSE Comments: This is a well-nourished well-developed -[place] female in hospital scrubs with appropriate grooming and fair eye contact. No abnormal movements except for mild psychomotor retardation. She was cooperative with exam and appeared in no acute distress. Speech was normal in regards to rate rhythm and prosody with no increase in latency noted. Mood described as a little better. Her affect was congruent and somewhat subdued. Her thought process was linear and organized. Thought content: Patient denied both suicidal and homicidal ideation. She endorsed auditory hallucinations of a command nature, but improving. She denied any visual hallucinations. Attention and concentration were intact and memory appeared reliable but none were formally tested. She is alert and oriented x3. Insight was poor and judgment appear impaired. Her impulse control is poor. Vitals/I&O/Wt Last Vital Signs Temp 98.7 F 06/21/23 06:00 Pulse 107 H 06/21/23 06:00 Resp 16 06/21/23 06:00 BP 100/61 06/21/23 06:00 Pulse Ox 98 06/21/23 06:00 O2 Del Method Room Air 06/21/23 06:00 Data NPU 06/19/23 07:56 06/19/23 07:56 A&P Assessment and plan (1) Depression, unspecified: (2) Auditory hallucination: (3) Methamphetamine dependence: (4) Homicidal ideation: (5) PTSD (post-traumatic stress disorder): (6) Schizophrenia: Plan 32-year-old -[place] female with a history of methamphetamine abuse along with a history of PTSD and psychosis along with depression who presents with command auditory hallucinations while residing in an inpatient substance abuse facility. 1. ?Encourage individual, group and milieu therapy. 2. Recommend sober living treatment at the highest level of care to which the patient is willing to commit. 3. Continue q-15 minute checks for safety.? 4. Restarted outpatient medications but held abilify and olanzapine and began Invega 6 mg p.o. daily with plan for consideration of long acting IM Invega (patient has reported no previous trial of this medication for psychosis) Involuntary Hold Information 96 Hour Hold: 96 Hour Involuntary Admission: No Attestations NPU Medical Necessity Statement*: Inpatient hospitalization is medically necessary and deemed to be the ?clinically appropriate intervention ?at this time.? We will monitor/initiate medications and make changes as indicated.? ? The patient's likely length of stay 3-5 days. Coding Level of Care Code Acute Code for [facility] Fwd Diagnoses Depression, unspecified F32.A Auditory hallucination R44.0 Methamphetamine dependence F15.20 Homicidal ideation R45.850 PTSD (post-traumatic stress disorder) F43.10 Schizophrenia F20.9
[2023-06-21] MEDS: hyDROXYzine 25 mg Capsule 50 MG PO (12:35)
[2023-06-21 14:00] VITALS: BP 93/55; PULSE 100; RESP 14; TEMP 37; O2SAT 99
[2023-06-21] MEDS: OLANZapine 5 mg ODT PO (17:01)
[2023-06-21 19:46] VITALS: PULSE 120; RESP 16; TEMP 37.2; O2SAT 99
[2023-06-21] MEDS: mirtazapine 30 mg Tablet PO (20:13)
[2023-06-21] MEDS: trazodone 50 mg Tablet PO (20:13)
[2023-06-21] MEDS: prazosin 1 mg Capsule 4 MG PO (20:13)
[2023-06-22] MEDS: OLANZapine 5 mg ODT PO ×2 (00:42→16:28)
[2023-06-22 06:00] VITALS: BP 95/59; PULSE 92; RESP 16; O2SAT 94
[2023-06-22] MEDS: paliperidone ER 6 mg Tablet PO (09:36)
[2023-06-22 14:00] VITALS: BP 94/59; PULSE 95; RESP 15; TEMP 36.9; O2SAT 100
[2023-06-22] MEDS: nicotine 2 mg Gum BUCCAL ×2 (16:27→19:36)
--- NOTE | 2023-06-22 16:33 | W.PM.NPUPNS ---
Subjective NPU Subjective: Patient presented today reporting that she still having some auditory hallucinations but that she feels the Invega is helping. She wanted to make sure that she was no longer on Zyprexa as she feels Zyprexa is causing her to gain weight. Otherwise we talked about the likelihood of discharge at the beginning of the week and possibly Saturday. Mental Status Exam MSE Comments: This is a well-nourished well-developed -[place] female in hospital scrubs with appropriate grooming and fair eye contact. No abnormal movements except for mild psychomotor retardation. She was cooperative with exam and appeared in no acute distress. Speech was normal in regards to rate rhythm and prosody with no increase in latency noted. Mood described as a little better. Her affect was congruent. Her thought process was linear and organized. Thought content: Patient denied both suicidal and homicidal ideation. She endorsed auditory hallucinations of a command nature, but improving. She denied any visual hallucinations. Attention and concentration were intact and memory appeared reliable but none were formally tested. She is alert and oriented x3. Insight was poor and judgment appear impaired. Her impulse control is poor. Vitals/I&O/Wt Last Vital Signs Temp 98.5 F 06/22/23 14:00 Pulse 95 06/22/23 14:00 Resp 15 06/22/23 14:00 BP 94/59 06/22/23 14:00 Pulse Ox 100 06/22/23 14:00 O2 Del Method Room Air 06/21/23 06:00 Data NPU 06/19/23 07:56 06/19/23 07:56 A&P Assessment and plan (1) Depression, unspecified: (2) Auditory hallucination: (3) Methamphetamine dependence: (4) Homicidal ideation: (5) PTSD (post-traumatic stress disorder): (6) Schizophrenia: Plan 32-year-old -[place] female with a history of methamphetamine abuse along with a history of PTSD and psychosis along with depression who presents with command auditory hallucinations while residing in an inpatient substance abuse facility. 1. ?Encourage individual, group and milieu therapy. 2. Recommend sober living treatment at the highest level of care to which the patient is willing to commit. 3. Continue q-15 minute checks for safety.? 4. Restarted outpatient medications but held abilify and olanzapine and began Invega 6 mg p.o. daily with plan for consideration of long acting IM Invega (patient has reported no previous trial of this medication for psychosis) possibly consider increasing Invega. Involuntary Hold Information 96 Hour Hold: 96 Hour Involuntary Admission: No Attestations NPU Medical Necessity Statement*: Inpatient hospitalization is medically necessary and deemed to be the ?clinically appropriate intervention ?at this time.? We will monitor/initiate medications and make changes as indicated.? ? The patient's likely length of stay 2-4 days. Coding Level of Care Code Acute Code for [facility] Diagnoses Depression, unspecified F32.A Auditory hallucination R44.0 Methamphetamine dependence F15.20 Homicidal ideation R45.850 PTSD (post-traumatic stress disorder) F43.10 Schizophrenia F20.9
[2023-06-22 22:00] VITALS: BP 116/72; PULSE 97; RESP 17; TEMP 36.7; O2SAT 98
[2023-06-23 06:00] VITALS: BP 115/74; PULSE 98; RESP 17; O2SAT 99
[2023-06-23] MEDS: nicotine 2 mg Gum BUCCAL ×4 (07:36→17:24)
[2023-06-23] MEDS: paliperidone ER 6 mg Tablet PO (07:37)
--- NOTE | 2023-06-23 10:19 | P.NPUPN_ITS ---
Subjective NPU Subjective: Patient presented today reporting that she is doing okay. We discussed making sure that she was only taking the as needed Zyprexa when she needs it. Because we had discontinued the Zyprexa due to concerns about weight gain and we endorsed the fact that we would not write it as a as needed so she should start getting used to not having it. Also talked about the possibility of getting the Invega as Invega Sustenna which she is still thinking about. Mental Status Exam MSE Comments: This is a well-nourished well-developed -[place] female in hospital scrubs with appropriate grooming and fair eye contact. No abnormal movements except for mild psychomotor retardation. She was cooperative with exam and appeared in no acute distress. Speech was normal in regards to rate rhythm and prosody with no increase in latency noted. Mood described as a little better. Her affect was congruent. Her thought process was linear and organized. Thought content: Patient denied both suicidal and homicidal ideation. She endorsed auditory hallucinations of a command nature, but improving. She denied any visual hallucinations. Attention and concentration were intact and memory appeared reliable but none were formally tested. She is alert and oriented x3. Insight was poor and judgment appear impaired. Her impulse control is poor. Vitals/I&O/Wt Last Vital Signs Temp 98.1 F 06/22/23 22:00 Pulse 98 06/23/23 06:00 Resp 17 06/23/23 06:00 BP 115/74 06/23/23 06:00 Pulse Ox 99 06/23/23 06:00 O2 Del Method Room Air 06/23/23 06:00 Weight last 48 hrs Weight 96.275 kg Data NPU 06/19/23 07:56 06/19/23 07:56 A&P Assessment and plan (1) Depression, unspecified: (2) Auditory hallucination: (3) Methamphetamine dependence: (4) Homicidal ideation: (5) PTSD (post-traumatic stress disorder): (6) Schizophrenia: Plan 32-year-old -[place] female with a history of methamphetamine abuse along with a history of PTSD and psychosis along with depression who presents with command auditory hallucinations while residing in an inpatient substance abuse facility. 1. ?Encourage individual, group and milieu therapy. 2. Recommend sober living treatment at the highest level of care to which the patient is willing to commit. 3. Continue q-15 minute checks for safety.? 4. Restarted outpatient medications but held abilify and olanzapine and began Invega 6 mg p.o. daily with plan for consideration of long acting IM Invega (patient has reported no previous trial of this medication for psychosis) possibly consider increasing Invega. Involuntary Hold Information 96 Hour Hold: 96 Hour Involuntary Admission: No Attestations NPU Medical Necessity Statement*: Inpatient hospitalization is medically necessary and deemed to be the ?clinically appropriate intervention ?at this time.? We will monitor/initiate medications and make changes as indicated.? ? The patient's likely length of stay 1-3 days. Coding Level of Care Code Acute Code for g Fwd Diagnoses Depression, unspecified F32.A Auditory hallucination R44.0 Methamphetamine dependence F15.20 Homicidal ideation R45.850 PTSD (post-traumatic stress disorder) F43.10 Schizophrenia F20.9
[2023-06-23 14:00] VITALS: BP 125/79; PULSE 138; RESP 16; TEMP 37.3; O2SAT 98
[2023-06-23] MEDS: OLANZapine 5 mg ODT PO ×2 (14:30→18:48)
[2023-06-23 19:44] VITALS: BP 112/74; PULSE 104; RESP 16; TEMP 37; O2SAT 96
[2023-06-23] MEDS: prazosin 1 mg Capsule 4 MG PO (20:13)
[2023-06-23] MEDS: mirtazapine 30 mg Tablet PO (20:14)
[2023-06-24 06:00] VITALS: BP 113/73; PULSE 114; RESP 18; TEMP 36.9; O2SAT 98
[2023-06-24] MEDS: nicotine 2 mg Gum BUCCAL ×2 (07:38→09:39)
[2023-06-24] MEDS: paliperidone ER 6 mg Tablet PO (09:00)
[2023-06-24] MEDS: docusate sodium 100 mg Capsule PO (09:19)
[2023-06-24] MEDS: paliperidone palmitate 234 mg Syringe IM (12:20)
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
[2023-06-24 12:30] VITALS: BP 113/73; PULSE 114; RESP 18; TEMP 36.9; O2SAT 98
--- NOTE | 2023-06-24 12:33 | PC.NURSE ---
Administered Invega Sustenna 234 mg IM to patien's right deltoid muscle. No adverse reactions. Patient tolerated well. Lot: [id number] EXP: 12/08
== END 2023-06-24 13:05 | disposition home or self-care (01) | DRG 885 ==
LOC: ER 09:01 → NP 09:21
PROVIDERS: Admitting Provider Psychiatry & Neurology Psychiatry; Emergency Provider Emergency Medicine; Visit Provider Psychiatry & Neurology Psychiatry
DX: F20.9 Schizophrenia, unspecified (principal); R45.851 Suicidal ideations; F43.10 Post-traumatic stress disorder, unspecified; F15.11 Other stimulant abuse, in remission; Z62.810 Personal history of physical and sexual abuse in childhood; Z81.3 Family history of other psychoactive substance abuse and dependence
CPT/HCPCS: 36415; 73610; 80053; 80306; 80307; 81001; 81025; 85025; 96372; 97150; 97165; 99285; J1885